=== PATIENT | female | born 1990 | race Caucasian/White ===

== ENCOUNTER 2019-02-07 03:35 | Emergency (ER) | payer OTHER ==
[~2019-02-07] VITALS: Ht 154.9 cm; Wt 57.1 kg
[~2019-02-07 03:35] MED LIST: ALBUTEROL INHAL17 GM IH; BIRTH CONTROL; CIPROFLOXACIN500 M1 PO; DIFLUCAN150 MG PO; FLAGYL500 MG PO; FLOMAX0.4 MG PO; HYDROCODONE-AP1 EAC6 PO; IBUPROFEN 800800 M1 PO; NOHOMEMEDICATIONS; NORCO 5-325 TA1 EACH PO; TORADOL 10 MG T10 MG PO; TRAMADOL 50 MG50 MG PO; ZOFRAN ODT4 M1 PO; ZOFRAN4 MG PO; ZPAK PO
[2019-02-07 04:05] LABS: ABSOLUTE LYMPHOCYTES 2.7 thou/uL (0.8-5.3); MPV 8.6 fl. (7.2-11.1)
[2019-02-07 04:19] LABS: ABSOLUTE EOSINOPHILS 0.6 thou/uL (0.0-0.7); ABSOLUTE MONOCYTES 0.6 thou/uL (0.0-1.2); ABSOLUTE NEUTROPHILS 3.8 thou/uL (1.6-8.1); BASOPHILS 0.6 %; EOSINOPHILS 7.4 %; HEMATOCRIT 43.8 % (37.0-47.0); HEMOGLOBIN 14.9 gm/dL (12.0-15.0); LYMPHOCYTES 34.9 %; MCH 30.7 pg (26.0-34.0); MCV 90.4 fL (80.0-100.0); MONOCYTES 8.3 %; NUCLEATED RBCS 0 /100WBC; PLATELET COUNT* 303 thou/uL (150-400); POLYS 48.8 %; RBC 4.84 mil/uL (4.20-5.00); RDW-CV 13.1 % (10.5-14.5); WBC 7.7 thou/uL (4.0-11.0)
[2019-02-07 04:32] LABS: URINE BILIRUBIN NEGATIVE (Negative); URINE BLOOD 1+ (Negative); URINE CLARITY CLEAR; URINE COLOR YELLOW; URINE GLUCOSE-RANDOM NEGATIVE (Negative); URINE KETONES NEGATIVE (Negative); URINE LEUKOCYTES-REFLEX NEGATIVE (Negative); URINE NITRITE-REFLEX NEGATIVE (Negative); URINE PROTEIN NEGATIVE (Negative); URINE SPECIFIC GRAVITY 1.015 (1.005-1.030); URINE UROBILINOGEN 0.2 E.U./dl (0.2-1.0)
[2019-02-07 04:36] LABS: ALBUMIN 3.8 g/dL (3.4-5.0); CALCIUM 8.9 mg/dL (8.5-10.1); CREATININE 0.7 mg/dL (0.6-1.3); POTASSIUM 3.7 mmol/L (3.5-5.1); TOTAL BILIRUBIN 0.3 mg/dL (<0.1-1.0); TOTAL PROTEIN 7.3 g/dL (6.4-8.2)
[2019-02-07 04:37] LABS: AMP/METHAMP Negative (Negative); BARBITURATES Negative (Negative); BENZODIAZEPINES Negative (Negative); COCAINE Negative (Negative); METHADONE Negative (Negative); OPIATES Negative (Negative); PCP Negative (Negative); THC Negative (Negative)
[2019-02-07] MEDS ORDERED: CARAFATE 1 GM TA1 GM PO (04:43)
[2019-02-07 04:49] VITALS: BP 114/62
[2019-02-07 05:17] LABS: BACTERIA-REFLEX 1-9 Few /HPF (None Seen); CASTS None Seen /LPF (None Seen); CRYSTALS None Seen /LPF (None Seen); SQUAMOUS >10 Many /LPF (0-3); URINE RBC 3-10 Few /HPF (0-2); URINE WBC-REFLEX 0-5 Rare /HPF (0-5)
--- NOTE | 2019-02-07 10:41 | EKG ---
[place] [address] ELECTROCARDIOGRAM REPORT Name: ADRIÁN MARINO Room: [facility]#: [id number] Admission: 02/07/19 Attend Phys: Discharge: 02/07/19 Date of : 89 Report #: [id number] THIS REPORT FOR: //name// [facility] ED Test Date: 2019-02-07 Test Time: 03:41:48 Pat Name: ADRIÁN MARINO Department: Room: Gender: F [employer]: DWIGHT : 1990 Requested By: Jennifer Lara Order Number: [id number] MD: Nestor Patel Measurements Intervals [place] Rate: 77 P: 49 CO: 146 QRS: 75 QRSD: 84 T: 16 QT: 396 QTc: 449 Interpretive Statements Sinus rhythm No previous ECG available for comparison Electronically Signed On 02-07-2019 10:41:37 CDT by Nestor Patel [email or web address] <ELECTRONICALLY SIGNED> By: Nestor Patel MD, [facility] 02/07/19 1041 [id number] Nestor Patel MD, FACC /EPI
== END 2019-02-07 04:50 | disposition home or self-care (01) ==
LOC: M.ERS 03:35
PROVIDERS: Emergency Medicine
DX: R07.89 Other chest pain (principal); F17.210 Nicotine dependence, cigarettes, uncomplicated; K21.9 Gastro-esophageal reflux disease without esophagitis; Z88.8 Allergy status to other drugs, medicaments and biological substances; Z90.49 Acquired absence of other specified parts of digestive tract